=== PATIENT | male | born 1980 | race African-American/Black ===

== ENCOUNTER 2020-06-20 04:35 | Emergency (ER) | payer MEDICAID, MEDICARE ==
[~2020-06-20] VITALS: Ht 160 cm; Wt 59.0 kg
--- NOTE | 2020-06-20 04:45 | NUR ---
BIBS FOR C/O "UTI" . REPORTED CLOUDY URINE W/ SEDEMENTS X 1 DAY. - FEVER. PT HAS A CATHETER W/ URINARY BAG (LEG BAG ) IN PLACE. VSS. WILL CONT TO MONITOR,
--- NOTE | 2020-06-20 05:00 | NUR ---
DEBBIE URINE FROM THE CATHETER COLLECTED AND SENT TO LAB
[2020-06-20 05:17] LABS: APPEARANCE,URINE CLEAR (CLEAR); BILIRUBIN,URINE NEGATIVE (NEGATIVE); BLOOD, URINE TRACE-INTA Ery/uL (NEGATIVE); COLOR,URINE YELLOW (YELLOW); KETONES,URINE NEGATIVE (NEGATIVE); LEUKOCYTE ESTERASE ,URINE TRACE (NEGATIVE); NITRITE, URINE POSITIVE (NEGATIVE); PH,URINE 6.5 (5.0-8.0); PROTEIN,URINE NEGATIVE (NEGATIVE); UGLUCOSE NEGATIVE (NEGATIVE); UROBILINOGEN,URINE 0.2 EU/dL (0.2)
[2020-06-20 05:23] LABS: BACTERIA,URINE Few /HPF (None Seen); SQUAMOUS EPITHELIAL CELL,UR Rare /HPF (None Seen); WBC,URINE 21-50 /HPF (0-3)
[2020-06-20] MEDS ORDERED: CIPROFLOXACIN HCL 500 MG TABLET ONE (05:49)
[2020-06-20 05:55] VITALS: BP 129/78
--- NOTE | 2020-06-20 05:55 | NUR ---
Patient discharged to home in stable condition. Rx and Written and verbal after care instructions given. Patient verbalizes understanding of instruction.
[2020-06-20] MEDS ORDERED: CIPROFLOXACIN HCL 250 MG TABLET PO ONE (06:00)
== END 2020-06-20 05:56 | disposition home or self-care (01) ==
LOC: ER 04:38
DX: N39.0 Urinary tract infection, site not specified (principal); G82.20 Paraplegia, unspecified; Z88.0 Allergy status to penicillin
CPT/HCPCS: 81000-TC; 87086-TC; 87186-TC

== ENCOUNTER 2020-06-22 19:57 | Inpatient (IN) | payer MEDICARE ==
[~2020-06-22] VITALS: Ht 162.6 cm; Wt 52.2 kg
--- NOTE | 2020-06-22 20:08 | NUR ---
PT AAOX4. BIBSELF C/O HE WAS DIAGNOSED WITH UTI AND WAS TOLD TO COME TO THE E.D. DUE TO HIS URINE CULTURE GROWING ESBL. PT PLACED IN BED 14 ON MONITOR AND PULSE OX. VSS. NO ACUTE DISTRESS NTOED. AWAITING MD FOR EVAL AND ORDERS.
--- NOTE | 2020-06-22 20:46 | NUR ---
UNABLE TO OBTAIN LINE
[2020-06-22 21:00] LABS: APPEARANCE,URINE Slightly Cloudy (CLEAR); BILIRUBIN,URINE Negative (NEGATIVE); BLOOD, URINE Trace-lysed Ery/uL (NEGATIVE); COLOR,URINE Yellow (YELLOW); KETONES,URINE Negative (NEGATIVE); LEUKOCYTE ESTERASE ,URINE Small (NEGATIVE); NITRITE, URINE Positive (NEGATIVE); PROTEIN,URINE 30 mg/dl (NEGATIVE); UGLUCOSE Negative (NEGATIVE); UROBILINOGEN,URINE 0.2 EU/dL (0.2)
[2020-06-22] MEDS ORDERED: MEROPENEM 1,000 MG in IV NS 0.9% 100 ML IV ONE (21:00)
[2020-06-22] MEDS ORDERED: IV NS 0.9% 1,000 ML BAG IV ONE (21:00)
[2020-06-22] MEDS ORDERED: MEROPENEM 1 G VIAL IV ONE (21:31)
--- NOTE | 2020-06-22 21:34 | NUR ---
UNABLE TO OBTAIN IV LINE
--- NOTE | 2020-06-22 21:53 | NUR ---
CALLED [facility], PAGED PHYSICIAN RECRUITER AJ JIMENEZ FOR ADMISSION
[2020-06-22 21:59] LABS: BACTERIA,URINE Moderate /HPF (None Seen); MUCUS,URINE Few /LPF (None Seen); RBC,URINE 2-3/HPF /HPF (0-2); SQUAMOUS EPITHELIAL CELL,UR Few /HPF (None Seen); URINE AMORPHOUS URATE Few /HPF (None Seen); WBC,URINE 21-50 /HPF (0-3)
--- NOTE | 2020-06-22 22:11 | NUR ---
LINE ESTABLISHED L FOOT 22G.
--- NOTE | 2020-06-22 22:26 | NUR ---
LOUISA COLLECTED AND SENT TO LAB.
[2020-06-22 23:04] LABS: BASOPHILS % (AUTO) 0.3 % (0.0-2.0); EOSINOPHILS % (AUTO) 0.8 % (0.0-6.0); HEMATOCRIT 32 % (39-51); HEMOGLOBIN 9.3 g/dL (13.5-17.5); LYMPHOCYTES # (AUTO) 1.1 /CMM (0.8-4.8); LYMPHOCYTES % (AUTO) 13.2 % (20.0-44.0); MEAN CORPUSCULAR HGB CONC 29 g/dl (31.0-36.0); MEAN CORPUSCULAR VOLUME 67 fL (80-96); MONOCYTES # (AUTO) 0.7 /CMM (0.1-1.30); MONOCYTES % (AUTO) 8.9 % (2.0-12.0); NEUTROPHILS # (AUTO) 6.2 /CMM (1.8-8.9); NEUTROPHILS % (AUTO) 76.8 % (43.0-81.0); PLATELET COUNT (AUTO) 583 /CMM (150-450); RED BLOOD CELL COUNT(AUTO) 4.78 MIL/uL (4.5-6.0); WHITE BLOOD COUNT (AUTO) 8.1 K/uL (4.3-11.0)
--- NOTE | 2020-06-22 23:07 | NUR ---
call from lab. rapid covid negative.
[2020-06-22 23:11] LABS: ALBUMIN 3.4 g/dL (3.4-5.0); BILIRUBIN,DIRECT 0.1 mg/dL (0.0-0.2); BILIRUBIN,TOTAL 0.2 mg/dL (0.2-1.0); CALCIUM, SERUM 9.5 mg/dL (8.5-10.1); CREATININE 0.9 mg/dL (0.6-1.3); POTASSIUM 3.7 mmol/L (3.5-5.1); TOTAL PROTEIN, SERUM 9.4 g/dL (6.4-8.2)
[2020-06-22 23:38] LABS: LYMPHOCYTES % (MANUAL) 8 % (16-48); MONOCYTES % (MANUAL) 5 % (0-11.0); NEUTROPHILS % (MANUAL) 87 (42-76)
--- NOTE | 2020-06-22 23:52 | NUR ---
PT ON HIS PHONE, VSS. PLACED ON MONITOR AND PULSE OX. VSS.
[2020-06-23 00:25] VITALS: BP 136/79
[2020-06-23 00:30] VITALS: BP 136/79
--- NOTE | 2020-06-23 00:30 | NUR ---
MS HEBREW PROFESSOR NOTES RECEIVED PATIENT FROM ER VIA GURNEY, ALERT AND ORIENTED X 4. VERBALLY RESPONSIVE AND ABLE TO FOLLOW DIRECTIONS. BREATHING REGULAR AND UNLABORED ON ROOM AIR. LEFT FOOT G22 IV LINE PATENT AND FLUSHING WELL WITH NO BLEEDING OR S/S OF INFILTRATION NOTED. REFUSED BODY ASSESSMENT, PER PATIENT "THE WOUND NURSE WILL CHECK IT IN AM ANYWAY". RISK AND BENEFITS EXPLAINED. OBSERVED WITH UROSTOMY AND COLOSTOMY, STOMAS CLEAN AND PINKISH/RED IN COLOR. DENIES SUICIDAL IDEATION OR PAIN/DISCOMFORT AT THIS TIME. NO ADVANCE DIRECTIVES BUT PATIENT REQUESTED TO BE FULL CODE. VITAL SIGNS AND BELONGINGS CHECKED. BED LOW AND LOCKED ON SEMI FOWLERS POSITION. CALL LIGHT IN REACH. WILL CONTINUE TO MONITOR.
[2020-06-23] MEDS ORDERED: IV NS 0.9% 1,000 ML IV PRN (02:14)
[2020-06-23] MEDS ORDERED: Z GUARD REMEDY 2 OZ OINT TP PRN (02:30)
[2020-06-23] MEDS ORDERED: ONDANSETRON HCL/PF 4 MG/2 ML VIAL IVP PRN (02:30)
[2020-06-23] MEDS ORDERED: ACETAMINOPHEN 325 MG TABLET PO PRN (02:30)
[2020-06-23] MEDS ORDERED: HYDROCODONE/APAP 5/325MG TABLET PO PRN (02:30)
[2020-06-23] MEDS: ENOXAPARIN SODIUM 40 MG/0.4 ML DISP.SYRIN SQ SCH ×3 (02:30→20:35)
[2020-06-23] MEDS ORDERED: ZOLPIDEM TARTRATE 5 MG TABLET PO PRN (02:30)
[2020-06-23] MEDS ORDERED: MAGNESIUM HYDROXIDE 30 ML UDC PO PRN (02:30)
[2020-06-23] MEDS ORDERED: MAG HYDROX/AL HYDROX/SIMETH 30 ML UDC PO PRN (02:30)
--- NOTE | 2020-06-23 03:25 | NUR ---
MS RN NOTES REFUSED DVT PUMP APPLICATION AND LOVENOX INJECTION PER PATIENT "ITS NOTHING, I'M JUST HERE FOR THE ANTIBIOTICS". RISK AND BENEFITS EXPLAINED.
[2020-06-23] MEDS ORDERED: MEROPENEM 500 MG VIAL IV ONE (04:03)
[2020-06-23] MEDS ORDERED: MEROPENEM 500 MG in IV NS 0.9% 50 ML IV SCH ×4 (05:00)
--- NOTE | 2020-06-23 06:40 | NUR ---
MS RN CLOSING NOTES PATIENT IN BED, ALERT AND ORIENTED X 4. AFEBRILE WITH NO S/S OF DISTRESS OBSERVED. LEFT FOOT G22 IV LINE PATENT AND INFUSING WELL. NO COMPLAINTS OF PAIN/DISCOMFORT REPORTED AT THIS TIME. UROSTOMY TUBE INTACT WITH CLEAR YELLOW URINE 300cc OUTPUT. REFUSED TO CHANGE COLOSTOMY BAG PER PATIENT "ITS STILL GOOD", RISK AND BENEFITS EXPLAINED. MAINTAINED ON CONTACT ISOLATION FOR ESBL URINE, PROPER HAND WASHING AND ISOLATION PRECAUTIONS OBSERVED. BED LOW AND LOCKED ON SEMI FOWLERS POSITION. CALL LIGHT IN REACH. WILL ENDORSE TO MORNING SHIFT FOR TERRELL.
[2020-06-23] MEDS ORDERED: PANTOPRAZOLE 40 MG TABLET.DR PO SCH (07:30)
[2020-06-23 08:00] VITALS: BP 129/77
--- NOTE | 2020-06-23 08:00 | NUR ---
MS RN OPENING NOTES PATIENT IN BED, ALERT AND ORIENTED X 4. AFEBRILE WITH NO S/S OF DISTRESS OBSERVED.PT REFUSED VITAL SIGNS SAYING HE DOESN'T WANT TO BE BOTHERED. LEFT FOOT G22 IV LINE PATENT AND INFUSING WELL. NO COMPLAINTS OF PAIN/DISCOMFORT REPORTED AT THIS TIME. UROSTOMY TUBE INTACT WITH CLEAR YELLOW URINE OUTPUT. REFUSED BODY CHECK AND REFUSED TO CHANGE COLOSTOMY BAG PER PATIENT "ITS STILL GOOD", RISK AND BENEFITS EXPLAINED. MAINTAINED ON CONTACT ISOLATION FOR ESBL URINE, PROPER HAND WASHING AND ISOLATION PRECAUTIONS OBSERVED. BED LOW AND LOCKED ON SEMI FOWLERS POSITION. CALL LIGHT IN REACH.
--- NOTE | 2020-06-23 09:00 | NUR ---
ASKED PT IF HE NEEDS HELP/ASSISTANCE WITH HELICOPTER UTILITY AIRCREWMAN, PT REFUSED SAYING HE IS FINE AND REFUSED TO SEE THE COAL DIGGER.
[2020-06-23] MEDS: MEROPENEM 1 G in IV NS 0.9% 100 ML IV SCH ×2 (12:58→20:31)
--- NOTE | 2020-06-23 15:03 | NUR ---
9:45am This SW received a social service consult for this patient per Felipe Fallon DNP, for an evaluation as this patient lives alone. Patient is a 39-year-old male, alert and oriented x4. Patient confirmed demographic information on the face sheet including date of , social security and address. Patient reports that he lives alone. Patient reports he is independent with ADLs and IADLs. 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 Patient was not willing to report his monthly income. Patient stated why do you need to know this information? This SW explained to the patient by informing the patient that this is a part of the assessment for this SW to learn and understand patient needs. Patient denies alcohol, drug, and cigarette use. Patient denies auditory and visual hallucinations. Patient does not report a mental health diagnosis. Patient denies suicidal and homicidal ideations. Patient did not want any resources from this SW. This SW to remain available for all needs regarding this patient.
--- NOTE | 2020-06-23 16:54 | NUR ---
[facility] CALLED REPORTING PT IS POSITIVE OF MRSA NARES. NOTIFIED DR JOSH WATTS OF MRSA NARES POSITIVE WITH ORDER FOR BACTROBAN OINT Q 12 HRS FOR 5 DAYS.
[2020-06-23] MEDS ORDERED: MUPIROCIN OINT 2% 22 GM TUBE NS SCH (18:00)
--- NOTE | 2020-06-23 18:23 | NUR ---
DISCHARGE INSTRUCTIONS AND HOME HEALTH INFORMATION GIVEN TO THE PT. AWAITING FOR MIDLINE NURSE FOR MIDLINE INSERTION FOR CONTINUATION OF IV ATB MERREM DAILY FOR 10 DAYS.
--- NOTE | 2020-06-23 19:00 | NUR ---
AWAITING FOR MIDLINE NURSEMAKAYLA TO ARRIVE AT 8PM REPORTED BY DRIER TRANSFER CAR OPERATOR,SAURABH.ENDORSED PT TO NIGHT NURSE CARE. CONFIRMED THAT HIS CELL NO IS WHEN HOME HEALTH NEEDS TO CONTACT HIM.
--- NOTE | 2020-06-23 20:00 | NUR ---
MS/RN NOTES PATIENT AWAKE, ALERT X3, ABLE TO VERBALIZE NEEDS, ON ROOM AIR, NO JIM REPORTED AND ABLE TO AGREE WAITING FOR MIDLINE NURSE BEFORE HE LEAVES DISCHARGE INSTRUCTIONS PROVIDED AND MADE AWARE REGARDING IV THERAPY. PATIENT AWAITING FOR MIDLINE NURSE, PROVIDED INSTRUCTIONS ON CHECKING VITAL SIGNS AGAIN AND REPORTED HE DOES NOT NEED IT AT THIS TIME AND DISCUSSED THE PROS AND CONS, PATIENT ALSO REFUSED THE LOVENOX INJECTIONS. INDEPENDENT SELF CARE, ABLE TO DRIVE AND HAS A CAR, REQUESTED AND PROVIDED SNACKS TO [employer] TO DRINK AND EAT. TO MONITOR AND FOLLOW UP.
--- NOTE | 2020-06-23 20:46 | NUR ---
AWAITING FOR MIDLINE NURSE, FOLLOW UP WITH CHARGE NURSE ANA WHITE WILL CALL AND FOLLOW UP.
--- NOTE | 2020-06-23 21:00 | NUR ---
midline nurse alison inserted l in eft upper arm site. patient tolerated well.
--- NOTE | 2020-06-23 22:03 | NUR ---
DISCHARGE INSTRUCTIONS PROVIDED TO PATIENT, PATIENT ALERT, ORIENTED ABLE TO ASELF CARE WITH VENTURA CATHETER AND ABLE TO WHEEL SELF, VERBALIZED UNDERSTANDING, SUPERVISED AND ID BAND REMOVED, IV SITE ON LEFT LEG REMOVED, PATIENT ASSISTED WITH WHEELCHAIR AND ASSISTED TO HIS CAR, MANAGES TO DRIVE AND TO HOME. BELONGINGS LIST PROVIDED. DISCUSSED DISCHARGE TO HOME FOR SAFETY.
== END 2020-06-23 22:00 | disposition home health service (06) | DRG 690 ==
LOC: ER 20:00 → MED 23:28
PROC: 05H633Z Insertion of Infusion Device into Left Subclavian Vein, Percutaneous Approach (ICD-10-PCS; principal; 2020-06-23)
PROC: B547ZZA Ultrasonography of Left Subclavian Vein, Guidance (ICD-10-PCS; 2020-06-23)
DX: N39.0 Urinary tract infection, site not specified (principal); G82.20 Paraplegia, unspecified; Z16.12 Extended spectrum beta lactamase (ESBL) resistance; D50.9 Iron deficiency anemia, unspecified; B96.20 Unspecified Escherichia coli [E. coli] as the cause of diseases classified elsewhere; Z93.3 Colostomy status; Z87.440 Personal history of urinary (tract) infections; W34.00XS Accidental discharge from unspecified firearms or gun, sequela; D47.3 Essential (hemorrhagic) thrombocythemia
CPT/HCPCS: 36415; 80048-TC; 80076-TC; 81000-TC; 83605-TC; 85025-TC; 87040-TC; 87081-TC; 87086-TC; 87186-TC; C9803-CS; G0378; J1650; J2185; J7030; J7060